=== PATIENT | female | born 1960 | race Caucasian/White ===

== ENCOUNTER 2020-07-27 19:02 | Inpatient (IN) | payer OTHER ==
[~2020-07-27] VITALS: Ht 175.3 cm; Wt 120.7 kg
[2020-07-27] MEDS ORDERED: HYDROMORPHONE 1 MG/1 ML DISP.SYRIN IV ONE (19:30)
[2020-07-27] MEDS ORDERED: KETAMINE HCL 500 MG/10 ML INJ IV ONE (19:30)
[2020-07-27] MEDS ORDERED: HYDROMORPHONE 1 MG/1 ML DISP.SYRIN ONE (19:32)
[2020-07-27] MEDS ORDERED: KETAMINE HCL 500 MG/10 ML INJ ONE (19:41)
--- NOTE | 2020-07-27 19:50 | NUR ---
Patient had reacted to medication to at 19:35 and desated, given 15 LPM via non-rebreather. MD Galdamez made aware. Patient position changed to sit-upright. Given Narcan 19:40 per MD Galdamez verbal order. Patient now has O2 sat at 98% and is now A&Ox4.
[2020-07-27] MEDS ORDERED: NALOXONE 2 MG/2 ML SYRINGE ONE (19:52)
[2020-07-27 21:27] LABS: BILIRUBIN,DIRECT 0.1 mg/dL (0.0-0.2); BILIRUBIN,TOTAL 0.3 mg/dL (0.2-1.0); POTASSIUM 3.7 mmol/L (3.5-5.1); TOTAL PROTEIN, SERUM 7.7 g/dL (6.4-8.2)
[2020-07-27 21:30] LABS: BASOPHILS % (AUTO) 0.3 % (0.0-2.0); EOSINOPHILS # (AUTO) 0.1 K/uL (0.0-0.7); EOSINOPHILS % (AUTO) 0.4 % (0.0-7.0); HEMATOCRIT 46.9 % (31.2-41.9); HEMOGLOBIN 15.4 g/dL (10.9-14.3); LYMPHOCYTES # (AUTO) 1.2 K/uL (20.0-40.0); LYMPHOCYTES % (AUTO) 9.9 % (20.5-51.5); MEAN CORPUSCULAR HEMOGLOBIN 30.7 uug (24.7-32.8); MEAN CORPUSCULAR HGB CONC 33 g/dL (32.3-35.6); MEAN CORPUSCULAR VOLUME 93.7 fL (75.5-95.3); MONOCYTES # (AUTO) 0.5 K/uL (2.0-10.0); NEUTROPHILS # (AUTO) 10.4 K/uL (1.8-8.9); NEUTROPHILS % (AUTO) 85.4 % (38.5-71.5); PLATELET COUNT (AUTO) 236 K/uL (179-408); RED BLOOD CELL COUNT(AUTO) 5.01 MIL/uL (3.63-4.92); WHITE BLOOD COUNT (AUTO) 12.2 K/uL (3.8-11.8)
--- NOTE | 2020-07-27 23:10 | NUR ---
Patient requested to be cleaned and changed. Was done with the two-person assistance.
--- NOTE | 2020-07-27 23:13 | NUR ---
MD Ritter called for orthro, pending contact back.
[2020-07-28] MEDS ORDERED: NALOXONE HCL 0.4 MG/ML AMPUL IV STA
[2020-07-28] MEDS ORDERED: ONDANSETRON 4 MG/2 ML VIAL IV PRN (01:45)
[2020-07-28] MEDS ORDERED: MORPHINE SULFATE 2 MG/1 ML DISP.SYRIN IV PRN (01:45)
--- NOTE | 2020-07-28 02:00 | NUR ---
Patient resting upright on gurney, no acute distress noted at this time.
--- NOTE | 2020-07-28 02:55 | NUR ---
Patient will be going to room 322.
--- NOTE | 2020-07-28 03:20 | NUR ---
Report given to GRECIA Mckeon.
--- NOTE | 2020-07-28 03:30 | NUR ---
Pt. admitted to med-surg room 322, under care of Dr. Britton. Belongs List completed
[2020-07-28 04:51] VITALS: BP 161/84
[2020-07-28] MEDS: PANTOPRAZOLE SODIUM 40 MG TABLET.DR PO SCH (06:07)
--- NOTE | 2020-07-28 07:05 | NUR ---
pt made comfortable on bed; c/o pain morphine given; ice applied to left knee; needs attended. safety maintained; continue to monitor; continue plan of care,
[2020-07-28 08:07] VITALS: BP 137/78
[2020-07-28] MEDS: ACETAMINOPHEN 325 MG TABLET PO PRN ×2 (09:37→19:46)
--- NOTE | 2020-07-28 10:54 | NUR ---
Spoke to Doctor Devonte regarding patient morphine order pending pharmacy. Says aware of narcan in ER with return of baseline vital signs. Request to go ahead with morphine as per order. Geovani Felix RN
[2020-07-28] MEDS: MORPHINE SULFATE 4 MG/1 ML DISP.SYRIN IV PRN ×2 (11:15→19:46)
[2020-07-28 12:09] VITALS: BP 156/76
--- NOTE | 2020-07-28 13:08 | NUR ---
Per Surgery steam boiler fireman Yuli patient will have date of surgery 07/29/20 at 1130 am. surgical supply assistant time in Medical Surgical Unit will be 11 am. Geovani Felix RN
[2020-07-28 16:03] VITALS: BP 116/83
--- NOTE | 2020-07-28 19:30 | NUR ---
Received patient lying in bed. AAOx4. In no acute distress. Denies any SOB. Complain of pain on left knee, will provide pain medication per order. Ice compress provided to left knee area. IV site left FA intact and patent. Needs assessed and attended to. Safety measure initiated and call saldaña within reached.
[2020-07-28 20:25] VITALS: BP 120/61
--- NOTE | 2020-07-28 21:35 | NUR ---
CXR done at bedside by radiology physician assistant/
--- NOTE | 2020-07-28 21:58 | NUR ---
EKG done at bedside by RT Carrasco.
--- NOTE | 2020-07-28 22:30 | NUR ---
Dr. Mcwilliams notified of EKG and CXR result with no new order given.
[2020-07-29 04:00] VITALS: BP 139/74
[2020-07-29 06:45] LABS: BASOPHILS % (AUTO) 0.5 % (0.0-2.0); EOSINOPHILS # (AUTO) 0.1 K/uL (0.0-0.7); EOSINOPHILS % (AUTO) 1.8 % (0.0-7.0); HEMATOCRIT 41.6 % (31.2-41.9); HEMOGLOBIN 13.7 g/dL (10.9-14.3); LYMPHOCYTES % (AUTO) 26.2 % (20.5-51.5); MEAN CORPUSCULAR HEMOGLOBIN 31.1 uug (24.7-32.8); MEAN CORPUSCULAR HGB CONC 33 g/dL (32.3-35.6); MEAN CORPUSCULAR VOLUME 94.3 fL (75.5-95.3); MONOCYTES # (AUTO) 0.5 K/uL (2.0-10.0); MONOCYTES % (AUTO) 7.2 % (0.0-11.0); NEUTROPHILS # (AUTO) 4.8 K/uL (1.8-8.9); NEUTROPHILS % (AUTO) 64.3 % (38.5-71.5); PLATELET COUNT (AUTO) 210 K/uL (179-408); RED BLOOD CELL COUNT(AUTO) 4.41 MIL/uL (3.63-4.92); WHITE BLOOD COUNT (AUTO) 7.5 K/uL (3.8-11.8)
--- NOTE | 2020-07-29 06:48 | NUR ---
Patient slept through out the night. Denies any SOB. Morphine 4mg via IV given for complain of left knee pain and effective. Ice compress also provided to affected area. IV site on left FA intact and patent. NPI status after midnight in preparation for left knee surgery today. Needs assessed and attended to. Safety measure maintained and call saldaña within reached.
[2020-07-29] MEDS: PANTOPRAZOLE SODIUM 40 MG TABLET.DR PO SCH (07:00)
[2020-07-29 07:02] LABS: CREATININE 0.7 mg/dL (0.6-1.3); MAGNESIUM 2.3 mg/dL (1.8-2.4); PHOSPHOROUS 3.6 mg/dL (2.5-4.9); POTASSIUM 4.2 mmol/L (3.5-5.1)
[2020-07-29] MEDS ORDERED: POLYMYXIN B SULFATE 500,000 UNITS, BACITRACIN 50,000 UNITS, NORMAL SALINE 20 ML MC ONE (09:15)
--- NOTE | 2020-07-29 09:16 | NUR ---
Seen by PT in room, able to do bed exercises. Addendum: 07/29/20 at 0916 by PATRICIA ULLOA RN wrong pt.
--- NOTE | 2020-07-29 09:28 | NUR ---
Spoke to OR nurse Harper regarding pt procedure, needed information also provided.
[2020-07-29] MEDS ORDERED: BUPIVACAINE/EPI PF 0.25% 30 ML VIAL ONE (10:06)
--- NOTE | 2020-07-29 11:01 | NUR ---
Patient picked up by 2 OR nurse via hospital bed for surgery.
[2020-07-29] MEDS ORDERED: FENTANYL CITRATE 100 MCG/2 ML AMPUL ONE ×3 (11:30→14:03)
[2020-07-29] MEDS ORDERED: HYDROMORPHONE 2 MG/1 ML DISP.SYRIN ONE (11:31)
[2020-07-29] MEDS ORDERED: ROCURONIUM BROMIDE 50 MG/5 ML VIAL ONE (11:33)
[2020-07-29 11:38] VITALS: BP 151/74
[2020-07-29] MEDS ORDERED: VANCOMYCIN 1000 MG VIAL ONE (12:50)
[2020-07-29] MEDS ORDERED: ONDANSETRON 4 MG/2 ML VIAL IV ONE (13:27)
[2020-07-29] MEDS ORDERED: GLYCOPYRROLATE 0.2 MG/ML VIAL IJ ONE (13:27)
[2020-07-29] MEDS ORDERED: DEXAMETHASONE SOD PHOSPHATE 4 MG INJ IV ONE (13:27)
[2020-07-29] MEDS ORDERED: LIDOCAINE-MPF 2% 5 ML VIAL IJ ONE (13:27)
[2020-07-29] MEDS ORDERED: SEVOFLURANE 250 ML BOTTLE IH ONE (13:27)
[2020-07-29] MEDS ORDERED: CEFAZOLIN 1 G VIAL IM ONE (13:27)
[2020-07-29] MEDS ORDERED: NEOSTIGMINE METHYLSULFATE 10 MG/10 ML VIAL IM ONE (13:27)
[2020-07-29] MEDS ORDERED: PROPOFOL 200 MG/20 ML BOTTLE IV ONE (13:27)
[2020-07-29] MEDS ORDERED: IV NORMAL SALINE 1000 ML BAG IV ONE (13:27)
[2020-07-29] MEDS ORDERED: ONDANSETRON 4 MG/2 ML VIAL ONE (14:05)
[2020-07-29] MEDS: MORPHINE SULFATE 4 MG/1 ML DISP.SYRIN IV PRN ×5 (14:46→23:54)
[2020-07-29] MEDS: IV D5W-0.45% NS +20 KCL 1,000 ML IV PRN (15:39)
--- NOTE | 2020-07-29 15:49 | NUR ---
Patient returned to room post-op. Awake, alert, oriented x 4. VSS. Complaining of 10/10 pain, given PRN morphine as ordered. Distal pedal pulse palpable, able to move toes and sensation intact. Will continue to monitor.
[2020-07-29 16:00] VITALS: BP 132/73
--- NOTE | 2020-07-29 18:14 | NUR ---
Order received for [place]-10. System flagged medication d/t hydromorphone allergy. Asked patient if she's ever taken [place] before and if she's ever had a reaction to norco before. Patient states that she's taken norco before and has never had an allergic reaction to it. Will endorse to oncoming nurse.
--- NOTE | 2020-07-29 18:20 | NUR ---
Received pt in bed, awake and verbally responsive, able to make needs known. No s/s of respiratory distress. Complained of pain of 8/10 on L knee. Will administer pain medication as ordered. IVF infusing well on L forearm. Safety measures initiated, call light within reach, will continue to monitor.
--- NOTE | 2020-07-29 19:20 | NUR ---
Report given to Mis PAIGE. Pt shows no s/s of respiratory distress. Still with pain on L knee. Pt is stable.
[2020-07-29 20:00] VITALS: BP 134/83
[2020-07-29 20:43] LABS: *BILIRUBIN,URIN NEGATIVE (NEGATIVE); *BLOOD, URINE 1+ (NEGATIVE); *CLARITY,URINE SLIGHTLY CLOUDY (CLEAR); *COLOR,URINE YELLOW (YELLOW); *KETONES,URINE NEGATIVE (NEGATIVE); *UROBILINOGEN,URINE 0.2 E.U./dl (NORMAL); LEUKOCYTE ESTERASE ,URINE 1+ (NEGATIVE); NITRITE, URINE POSITIVE (NEGATIVE); PH,URINE 5.5 (5.0-8.0); UGLUCOSE NEGATIVE (NEGATIVE)
--- NOTE | 2020-07-29 21:30 | NUR ---
HANDS OFF REPORT RECEIVED FROM REGISTRY NURSE. PT IN NO ACUTE RESPIRATORY DISTRESS. IV INTACT. SAFETY AND COMFORT PROVIDED. WILL CONTINUE TO MONITOR.
[2020-07-29] MEDS: CEFAZOLIN 1 G in IV DEXTROSE 5% 50 ML IV SCH (21:42)
[2020-07-29] MEDS: HYDROCODONE/APAP 10-325 MG TABLET PO PRN (22:26)
[2020-07-29 22:31] LABS: BACTERIA,URINE FEW /HPF (NONE SEEN); SQUAMOUS EPITHELIAL CELL,UR MODERATE /HPF (NONE SEEN); WBC,URINE 20-50 /HPF (0-3)
--- NOTE | 2020-07-29 22:38 | NUR ---
Resting in bed, complained of pain on abdominal area, 09/22, Morphjine Sulfate 4 mg IVP given. Claims feel better after 10 minutes. Weepy when being spoken with, reassured that help is available anytime she needs it. Resting at this time
--- NOTE | 2020-07-29 23:26 | NUR ---
NORCO 10-325MG PRN GIVEN AT 2226H FOR LEFT KNEE PAIN. . PT TOLERATED IT WELL WILL CONTINUE TO MONITOR.
[2020-07-30] MEDS: ACETAMINOPHEN 325 MG TABLET PO PRN (00:46)
--- NOTE | 2020-07-30 01:46 | NUR ---
AT 2354 H MORPHINE 4MG PRN FOR LEFT KNEE PAIN. PT TOLERATED IT WELL. AT 0046H TYLENOL PRN GIVEN FOR PAIN . WILL CONTINUE TO MONITOR.
[2020-07-30] MEDS: MORPHINE SULFATE 4 MG/1 ML DISP.SYRIN IV PRN ×9 (02:10→22:32)
--- NOTE | 2020-07-30 02:37 | NUR ---
MORPHINE INJ PRN 4MG GIVEN AT 0210H FOR LEG PAIN. PT TOLERATED IT WELL. WILL CONTINUE TO MONITOR.
[2020-07-30 04:00] VITALS: BP 114/67
[2020-07-30] MEDS: CEFAZOLIN 1 G in IV DEXTROSE 5% 50 ML IV SCH (04:32)
--- NOTE | 2020-07-30 06:07 | NUR ---
PT SLEPT INTERMITTENTLY. PT IN NO ACUTE RESPIRATORY DISTRESS. IV INTACT. PRESCRIBED MEDICATION GIVEN AND PT TOLERATED IT WELL. PAIN MANAGEMENT NEEDED. SAFETY AND COMFORT PROVIDED.WILL ENDORSE TO INCOMING NURSE FOR CONTINUITY OF CARE.
[2020-07-30] MEDS: IV D5W-0.45% NS +20 KCL 1,000 ML IV PRN ×2 (06:19→22:26)
--- NOTE | 2020-07-30 06:19 | NUR ---
MORPHINE 4MG PRN GIVEN FOR PT FOR PAIN. PT TOLERATED IT WELL. WILL CONTINUE TO MONITOR.
--- NOTE | 2020-07-30 06:33 | NUR ---
PT PROTONIX CAN'T BE PULLED OUT IN THE PYXIS. CHARGE NURSE AWARE. WILL ENDORSE TO INCOMING NURSE FOR CONTINUITY OF CARE.
--- NOTE | 2020-07-30 07:15 | NUR ---
RECEIVED PATIENT AWAKE IN BED. HOB ELEVATED. NO SOB, PAIN OR DISCOMFORT NOTED AT THIS TIME. CALL LIGHT WITHIN REACH, WILL CONTINUE TO MONITOR.
[2020-07-30] MEDS ORDERED: CEFTRIAXONE 1 G in IV DEXTROSE 5% 50 ML IV SCH (08:30)
[2020-07-30] MEDS: PANTOPRAZOLE SODIUM 40 MG TABLET.DR PO SCH (09:53)
[2020-07-30 10:54] VITALS: BP 129/65
[2020-07-30] MEDS: CEFTRIAXONE 2 G in IV DEXTROSE 5% 100 ML IV SCH (11:01)
[2020-07-30 15:36] VITALS: BP 109/54
--- NOTE | 2020-07-30 19:37 | NUR ---
PATIENT IN BED AWAKE, NO COMPLAINS OF ANY PAIN OR DISCOMFORT NOTED AT THIS TIME, CALL LIGHT WITHIN REACH. WILL REPORT TO ONCOMING NURSE.
[2020-07-30 20:21] VITALS: BP 125/66
--- NOTE | 2020-07-30 21:15 | NUR ---
Received pt in bed, awake and verbally responsive. Family present at bedside. No s/s of acute distress noted at this time. Complained of pain of 8/10 on L knee. Administered pain medication as ordered, pt tolerated well. IVF infusing well on L forearm. Safety measures in place, call light within reach.
[2020-07-31] MEDS: MORPHINE SULFATE 4 MG/1 ML DISP.SYRIN IV PRN ×3 (02:22→13:36)
[2020-07-31 04:00] VITALS: BP 126/70
[2020-07-31] MEDS: PANTOPRAZOLE SODIUM 40 MG TABLET.DR PO SCH (07:27)
--- NOTE | 2020-07-31 08:15 | NUR ---
received change of shift report, pt in bed resting, room air, no distress. IV on the left FA 22g infusing D51/2NS at 75, patent, intact. call light within reach, will continue with plan of care.
[2020-07-31 08:37] VITALS: BP 127/67
[2020-07-31] MEDS: CEFTRIAXONE 2 G in IV DEXTROSE 5% 100 ML IV SCH (09:56)
[2020-07-31 12:25] VITALS: BP 127/66
[2020-07-31] MEDS: IV D5W-0.45% NS +20 KCL 1,000 ML IV PRN (13:36)
[2020-07-31 16:33] VITALS: BP 117/69
[2020-07-31] MEDS: HYDROCODONE/APAP 10-325 MG TABLET PO PRN (17:48)
--- NOTE | 2020-07-31 18:46 | NUR ---
pt in bed resting, room air, no distress, no complaints of pain at this time. ALL MEDICATIONS GIVEN ORDERED, ALL NEEDS MET THIS SHIFT. IV on the left FA 22g infusing D51/2NS at 75, patent, intact. call light within reach, fall precautions in place, worked with physical therapy. will endorse to oncoming nurse.
[2020-07-31] MEDS ORDERED: CEFT1VIA15 IV ×2 (18:59→21:58)
[2020-07-31] MEDS ORDERED: HYDR-3980 PO ×2 (18:59→21:58)
[2020-07-31] MEDS ORDERED: BISA-79 PO ×2 (18:59→21:59)
[2020-07-31] MEDS ORDERED: PANT40TA2 PO ×2 (18:59→21:59)
[2020-07-31] MEDS ORDERED: ACET325T53 PO (18:59)
[2020-07-31] MEDS ORDERED: MULT-594 PO ×2 (18:59→21:59)
[2020-07-31] MEDS ORDERED: DOCU-141 PO (18:59)
[2020-07-31] MEDS ORDERED: MORP4CAR IV (21:58)
[2020-07-31] MEDS ORDERED: ACET-2154 PO (21:58)
[2020-07-31] MEDS ORDERED: DOCU100C36 PO (21:59)
[2020-07-31] MEDS ORDERED: ONDA4AMP IV (21:59)
== END 2020-07-31 20:14 | DRG 501 ==
LOC: ER 19:02 → MEDSURG3 07-28 03:13
PROVIDERS: ADMIT Internal Medicine; ATTEND Internal Medicine
PROC: 0QSF04Z Reposition Left Patella with Internal Fixation Device, Open Approach (ICD-10-PCS; principal; 2020-07-29)
PROC: [UNRECOGNIZED PROCEDURE] (2020-07-29)
DX: S82.092A Other fracture of left patella, initial encounter for closed fracture (principal); D68.59 Other primary thrombophilia; N39.0 Urinary tract infection, site not specified; S76.112A Strain of left quadriceps muscle, fascia and tendon, initial encounter; W01.198A Fall on same level from slipping, tripping and stumbling with subsequent striking against other object, initial encounter; Y93.E8 Activity, other personal hygiene; Y92.012 Bathroom of single-family (private) house as the place of occurrence of the external cause; Y99.8 Other external cause status; Z74.09 Other reduced mobility; E66.9 Obesity, unspecified; Z68.39 Body mass index [BMI] 39.0-39.9, adult; F17.210 Nicotine dependence, cigarettes, uncomplicated; M79.7 Fibromyalgia; Z20.822 Contact with and (suspected) exposure to COVID-19; R73.9 Hyperglycemia, unspecified
CPT/HCPCS: 36415; 71045; 73560; 83735; 84100; 85025; 85730; 87086; 93005; A4649; A4663; C1713; G0378; J0690; J0696; J1100; J1170; J2270; J2310; J2405; J3010; J3370; J3490; J7030; J7060

== ENCOUNTER 2020-07-31 20:33 | Inpatient (IN) | payer OTHER ==
[~2020-07-31] VITALS: Ht 175.3 cm; Wt 120.7 kg
[2020-07-31 20:21] VITALS: BP 135/78
[~2020-07-31 20:33] MED LIST: ACET325T53 PO; BISA-79 PO; CEFT1VIA15 IV; DOCU-141 PO; HYDR-3980 PO; MULT-594 PO; PANT40TA2 PO
[2020-07-31] MEDS ORDERED: Z GUARD REMEDY PASTE 57 GM TUBE TOP PRN (21:15)
[2020-07-31] MEDS ORDERED: ACET-2154 PO (21:58)
[2020-07-31] MEDS ORDERED: HYDR-3980 PO (21:58)
[2020-07-31] MEDS ORDERED: MORP4CAR IV (21:58)
[2020-07-31] MEDS ORDERED: CEFT1VIA15 IV (21:58)
[2020-07-31] MEDS ORDERED: BISA-79 PO (21:59)
[2020-07-31] MEDS ORDERED: DOCU100C36 PO (21:59)
[2020-07-31] MEDS ORDERED: ONDA4AMP IV (21:59)
[2020-07-31] MEDS ORDERED: PANT40TA2 PO (21:59)
[2020-07-31] MEDS ORDERED: MULT-594 PO (21:59)
[2020-07-31] MEDS ORDERED: HYDROCODONE/APAP 10-325 MG TABLET PO PRN ×2 (22:15→22:45)
[2020-07-31] MEDS ORDERED: BISACODYL 10 MG SUPP.RECT RC PRN (22:15)
[2020-07-31] MEDS ORDERED: CEFTRIAXONE 1 G in IV DEXTROSE 5% 50 ML IV SCH (22:45)
[2020-07-31] MEDS ORDERED: ACETAMINOPHEN 325 MG TABLET PO PRN (22:45)
[2020-07-31] MEDS ORDERED: BISACODYL 5 MG TABLET.DR PO PRN (22:45)
[2020-07-31] MEDS ORDERED: DOCUSATE SODIUM 100 MG CAPSULE PO SCH (22:45)
[2020-07-31] MEDS: DOCUSATE SODIUM 100 MG CAPSULE PO SCH (23:00)
[2020-07-31] MEDS: HYDROCODONE/APAP 10-325 MG TABLET PO PRN (23:55)
[2020-08-01 04:25] VITALS: BP 137/67
--- NOTE | 2020-08-01 04:28 | NUR ---
Admitted a 60 yr old female from [facility] [place] [facility] with admitting diagnosis of left patellar fracture S/P ORIF of the left patella (07/29) by Dr Ritter. AAOx4 Needs attended. LLE dressing clean dry and intact. Dr Britton aware of patient's admission. Meds reconcile. IV ABT given as needed. Tolerated well. Pain meds given as needed. Relief noted. VSS. Voiding in bedpan. Will monitor patient. Dr Bliss also aware of patient's admission.
[2020-08-01 08:17] VITALS: BP 146/79
[2020-08-01] MEDS: MULTIVITAMINS,THERAPEUTIC TABLET PO SCH (08:33)
[2020-08-01] MEDS: PANTOPRAZOLE SODIUM 40 MG TABLET.DR PO SCH (08:34)
[2020-08-01] MEDS: MORPHINE SULFATE 2 MG/1 ML DISP.SYRIN IV PRN ×2 (08:45→08:55)
[2020-08-01] MEDS: CEFTRIAXONE 2 G in IV DEXTROSE 5% 100 ML IV SCH (11:38)
[2020-08-01 15:46] VITALS: BP 124/64
[2020-08-01 20:15] VITALS: BP 103/66
[2020-08-01] MEDS: DOCUSATE SODIUM 100 MG CAPSULE PO SCH (20:47)
[2020-08-01] MEDS: HYDROCODONE/APAP 10-325 MG TABLET PO PRN (22:56)
--- NOTE | 2020-08-02 00:04 | NUR ---
AAOx4 LLE dressing clean dry and intact. VSS. Needs attended. Pain meds given as ordered with relief noted. Continent of bowel and bladder. BM noted this shift. No acute distress noted. Will monitor patient. Fall precautions maintained. Siderails up for safety.
[2020-08-02 04:00] VITALS: BP 146/84
[2020-08-02] MEDS: PANTOPRAZOLE SODIUM 40 MG TABLET.DR PO SCH (06:12)
--- NOTE | 2020-08-02 06:30 | NUR ---
End of shift notes: Slept well throughout the night. All needs attended and met. VSS. Will monitor patient. Kept comfortable. Voiding well. Denies any pain at this time.
[2020-08-02 07:03] LABS: HEMATOCRIT 40.4 % (31.2-41.9); MEAN CORPUSCULAR HEMOGLOBIN 31.5 uug (24.7-32.8); MEAN CORPUSCULAR VOLUME 94.4 fL (75.5-95.3); PLATELET COUNT (AUTO) 256 K/uL (179-408)
[2020-08-02 07:27] LABS: CREATININE 0.8 mg/dL (0.6-1.3); MAGNESIUM 2.5 mg/dL (1.8-2.4); PHOSPHOROUS 4.4 mg/dL (2.5-4.9); POTASSIUM 4.1 mmol/L (3.5-5.1)
[2020-08-02 08:00] VITALS: BP 122/69
[2020-08-02] MEDS: MULTIVITAMINS,THERAPEUTIC TABLET PO SCH (08:46)
[2020-08-02] MEDS: MORPHINE SULFATE 2 MG/1 ML DISP.SYRIN IV PRN (08:55)
[2020-08-02] MEDS: CEFTRIAXONE 2 G in IV DEXTROSE 5% 100 ML IV SCH (11:00)
--- NOTE | 2020-08-02 12:35 | NUR ---
IV INFILTRATED SHE DOESNT WANT PERIPHERAL OR MIDLINE RESTARTED. SPOKE WITH MOTORCYCLE SALES ASSOCIATE SHE STATES SHE WILL ORDER PO ATB.
[2020-08-02 16:00] VITALS: BP 117/71
[2020-08-02] MEDS: DOCUSATE SODIUM 100 MG CAPSULE PO SCH (20:09)
[2020-08-02] MEDS: HYDROCODONE/APAP 10-325 MG TABLET PO PRN (20:11)
[2020-08-02 20:31] VITALS: BP 133/67
--- NOTE | 2020-08-02 22:09 | NUR ---
AAOx4 VSS. C/o 07/23 pain. Administered NORCo per pt request, effective. All due medications administered and tolerated well. LLE dressing clean dry and intact. Needs attended. BM x2, incontinent, cleaned and kept comfortable. No acute distress noted. Safety measures maintained. Fall precautions maintained. Will monitor patient. throughout the night.
[2020-08-03] MEDS ORDERED: NALOXONE HCL 0.4 MG/ML AMPUL IV PRN (01:15)
[2020-08-03] MEDS: OXYCODONE HCL 10 MG TAB.SR.12H PO SCH ×3 (01:31→21:10)
[2020-08-03 04:00] VITALS: BP 129/67
[2020-08-03] MEDS: PANTOPRAZOLE SODIUM 40 MG TABLET.DR PO SCH (06:17)
[2020-08-03] MEDS: HYDROCODONE/APAP 10-325 MG TABLET PO PRN ×2 (06:21→18:37)
--- NOTE | 2020-08-03 06:27 | NUR ---
0130: Pt complaint of 7/10 pain, notified Dr. Bliss, new order to D/C morphine IV and start oxycontin 10mg PO Q12h. Administered and tolerated well. 0615: c/o 6/10 pain administered [place] per pt request. Pt slept intermittently. Pt is emotional and verbalized wanting a consistent schedule with PT to manage her pain prior to therapy. Safety measures maintained. Needs attended too. will endorse to oncoming nurse.
[2020-08-03 08:00] VITALS: BP 125/67
[2020-08-03] MEDS: MULTIVITAMINS,THERAPEUTIC TABLET PO SCH (08:21)
--- NOTE | 2020-08-03 11:00 | NUR ---
Patient seen and examined by Dr. Stone MD changed dressing of left knee surgical incision site. Noted with scanty sanguinous drainage. Picture taken. Per MD dressing can be changed daily and PRN for soiling, cleanse with NS, pat dry and cover with Mepilex.
--- NOTE | 2020-08-03 11:49 | NUR ---
SW Note: This SW notified nurse Nurys for psych consult. Pt stated that she is feeling depressed. Pt is tearful. Pt stated she has been depressed in the past and has been on antidepressant medications. Pt is open to taking medications.
[2020-08-03 14:00] VITALS: BP 129/62
[2020-08-03 20:00] VITALS: BP 115/62
[2020-08-03] MEDS: DOCUSATE SODIUM 100 MG CAPSULE PO SCH (21:09)
[2020-08-04] MEDS: HYDROCODONE/APAP 10-325 MG TABLET PO PRN ×3 (02:47→18:48)
[2020-08-04 04:00] VITALS: BP 118/56
[2020-08-04] MEDS: PANTOPRAZOLE SODIUM 40 MG TABLET.DR PO SCH (06:13)
[2020-08-04] MEDS: MULTIVITAMINS,THERAPEUTIC TABLET PO SCH (08:25)
[2020-08-04] MEDS: OXYCODONE HCL 10 MG TAB.SR.12H PO SCH ×2 (08:28→21:09)
[2020-08-04 08:59] VITALS: BP 130/72
--- NOTE | 2020-08-04 14:30 | NUR ---
Informed Dr. Ritter regarding patient feeling depressed and MD ordered for psych consult. Called Dr. Jose who is irrigation foreman but per MD call Dr. Morgan. Called Dr. Morgan and left a message. Faxed face sheet to [facility] and informed charge nurse regarding psych consult.
[2020-08-04 20:00] VITALS: BP 123/65
[2020-08-04] MEDS: DOCUSATE SODIUM 100 MG CAPSULE PO SCH (21:09)
[2020-08-05 04:00] VITALS: BP 112/55
[2020-08-05] MEDS: PANTOPRAZOLE SODIUM 40 MG TABLET.DR PO SCH (06:24)
[2020-08-05] MEDS: OXYCODONE HCL 10 MG TAB.SR.12H PO SCH ×2 (08:00→20:23)
[2020-08-05] MEDS: MULTIVITAMINS,THERAPEUTIC TABLET PO SCH (08:00)
[2020-08-05 08:53] VITALS: BP 110/55
[2020-08-05] MEDS: HYDROCODONE/APAP 10-325 MG TABLET PO PRN (12:47)
[2020-08-05 15:13] VITALS: BP 122/57
--- NOTE | 2020-08-05 18:37 | NUR ---
no changes noted during sift, patient participated with PT, OT services, dressing intact to left knee with leg brace intact.
[2020-08-05 20:15] VITALS: BP 123/64
[2020-08-05] MEDS: DOCUSATE SODIUM 100 MG CAPSULE PO SCH (20:23)
--- NOTE | 2020-08-05 21:12 | NUR ---
Resting in bed upon initial rounds. at the bedside. No acute distress noted. VSS. LLE dressing clean dry and intact, with leg brace on. (+)pulses (+) good circulation. Continent of bowel and bladder. All needs attended. Pain meds given as scheduled. Tolerated well. Kept comfortable. Will monitor patient. Kept comfortable.
[2020-08-06 04:18] VITALS: BP 117/60
[2020-08-06] MEDS: PANTOPRAZOLE SODIUM 40 MG TABLET.DR PO SCH (06:14)
[2020-08-06 08:06] VITALS: BP 103/64
[2020-08-06] MEDS: OXYCODONE HCL 10 MG TAB.SR.12H PO SCH ×2 (08:11→20:25)
[2020-08-06] MEDS: MULTIVITAMINS,THERAPEUTIC TABLET PO SCH (08:11)
--- NOTE | 2020-08-06 11:46 | NUR ---
patient has emotional ups and downs, noted with crying episodes and irritable behavior, spoke to dr hall to see patient.
--- NOTE | 2020-08-06 12:17 | NUR ---
noted with perineal rash, ordered Lotrimin cream, kept clean and dry, patient got shower, and skin inspected underneath the brace, no skin issues noted, left knee incision is clean and dry, still noted with some swelling, no malodorous, or drainage, no increased erythema noted. stitches intact dressing replaced
[2020-08-06] MEDS: HYDROCODONE/APAP 10-325 MG TABLET PO PRN (14:12)
[2020-08-06 14:47] VITALS: BP 141/69
[2020-08-06 20:15] VITALS: BP 104/50
[2020-08-06] MEDS: DOCUSATE SODIUM 100 MG CAPSULE PO SCH (20:25)
[2020-08-06] MEDS: CLOTRIMAZOLE 1% CREAM 30 GM TUBE TOP SCH (20:25)
--- NOTE | 2020-08-06 21:56 | NUR ---
Seen by Dr Morgan, ordered Prozac to be started in am. VSS. Needs attended. Voiding well. No acute distress noted. Will monitor patient. All due meds given as ordered. Left leg dressing intact. Fall precautions maintained. Siderails up for safety.
[2020-08-07 04:18] VITALS: BP 102/60
[2020-08-07] MEDS: PANTOPRAZOLE SODIUM 40 MG TABLET.DR PO SCH (06:16)
--- NOTE | 2020-08-07 06:26 | NUR ---
End of shift notes: Quiet night. Slept well during the shift. Voiding well in the bedpan. No acute distress noted. VSS. Will monitor patient. Denies any pain nor any discomfort. No behavioral issues noted this shift.
[2020-08-07 08:00] VITALS: BP 131/69
[2020-08-07] MEDS: OXYCODONE HCL 10 MG TAB.SR.12H PO SCH ×2 (08:30→20:20)
[2020-08-07] MEDS: FLUOXETINE HCL 20 MG CAPSULE PO SCH (08:30)
[2020-08-07] MEDS: MULTIVITAMINS,THERAPEUTIC TABLET PO SCH (08:30)
[2020-08-07] MEDS: CLOTRIMAZOLE 1% CREAM 30 GM TUBE TOP SCH ×2 (08:31→20:20)
[2020-08-07] MEDS ORDERED: HYDROCORTISONE 1% CREAM 30 GM TUBE TP PRN (11:45)
[2020-08-07] MEDS: HYDROCODONE/APAP 10-325 MG TABLET PO PRN (15:10)
[2020-08-07 16:00] VITALS: BP 121/63
[2020-08-07 20:00] VITALS: BP 134/74
[2020-08-07] MEDS: DOCUSATE SODIUM 100 MG CAPSULE PO SCH (20:18)
--- NOTE | 2020-08-07 21:46 | NUR ---
Received pt resting in bed. Pt's came by to visit pt. SHADY x4. No acute distress noted. Due meds given as ordered. Left leg brace in place, dressing intact. Safety measures maintained. Call light and personal items within reach. Will continue to monitor.
[2020-08-08 04:00] VITALS: BP 135/67
[2020-08-08] MEDS: PANTOPRAZOLE SODIUM 40 MG TABLET.DR PO SCH (06:12)
[2020-08-08 08:00] VITALS: BP 120/55
[2020-08-08] MEDS: FLUOXETINE HCL 20 MG CAPSULE PO SCH (09:04)
[2020-08-08] MEDS: OXYCODONE HCL 10 MG TAB.SR.12H PO SCH (09:04)
[2020-08-08] MEDS: MULTIVITAMINS,THERAPEUTIC TABLET PO SCH (09:04)
[2020-08-08] MEDS: CLOTRIMAZOLE 1% CREAM 30 GM TUBE TOP SCH (09:05)
--- NOTE | 2020-08-08 14:46 | NUR ---
Patient is discharged to the unit , AOX 4 , pleasant and cooperative upon assessment. On room air saturating at 95%. Body assessment done, belongings given. Discharge instructions given and remind her of her follow up to Dr. Ritter on 08/14/20. VS taken. Patient in stable condition. Medication prescription given. Picked up by [facility] transpnick. Notified Dr. Bliss and Dr. Ritter.
--- NOTE | 2020-08-08 14:54 | NUR ---
patient went home with wheelchair and FWW.
== END 2020-08-08 14:45 | disposition home health service (06) | DRG 560 ==
PROVIDERS: ADMIT Physical Medicine & Rehabilitation Pain Medicine; ATTEND Physical Medicine & Rehabilitation Pain Medicine
DX: S82.092D Other fracture of left patella, subsequent encounter for closed fracture with routine healing (principal); D68.59 Other primary thrombophilia; N39.0 Urinary tract infection, site not specified; M25.462 Effusion, left knee; W01.0XXD Fall on same level from slipping, tripping and stumbling without subsequent striking against object, subsequent encounter; Z68.39 Body mass index [BMI] 39.0-39.9, adult; R73.9 Hyperglycemia, unspecified; G89.29 Other chronic pain; E66.01 Morbid (severe) obesity due to excess calories; F32.9 Major depressive disorder, single episode, unspecified; M79.7 Fibromyalgia; Z20.822 Contact with and (suspected) exposure to COVID-19; R26.2 Difficulty in walking, not elsewhere classified; Z87.891 Personal history of nicotine dependence
CPT/HCPCS: 36415; 83735; 84100; 85025; J0696; J2270; J7060